=== PATIENT | male | born 1985 | race Caucasian/White ===

== ENCOUNTER 2025-10-04 13:21 | Inpatient (IN) | payer MEDICARE, MEDICAID ==
[~2025-10-04] VITALS: Ht 190.5 cm; Wt 99.3 kg
[2025-10-04] MEDS: SODIUM CHLORIDE 0.9% (SEPSIS BOLUS) IV ONE (13:25)
[2025-10-04 13:28] VITALS: O2SAT 100
[2025-10-04] MEDS: PIPERACILLIN/TAZO 3.375G/50ML 50 ML IV ONE (13:35)
[2025-10-04 14:36] LABS: HEMATOCRIT. 26.9 % (42.0-52.0); HEMOGLOBIN. 8.8 g/dL (14.0-18.0); MEAN PLATELET VOLUME 7.5 fl (7.4-10.4); PLATELET 181 x1000/uL (130-400); RED BLOOD CELL COUNT 3.14 mill/uL (4.7-6.1); RED CELL DISTRIBUTION WIDTH 23.5 % (11.6-14.6)
[2025-10-04] MEDS: VANCOMYCIN 1G PREMIX 200 ML IV ONE (14:49)
[2025-10-04 14:55] LABS: INR 1.1
[2025-10-04 14:56] LABS: TROPONIN I HIGH SENSITIVITY 4 ng/L (3.0-53)
[2025-10-04 15:19] LABS: CREATININE 1.1 mg/dL (0.6-1.3); UREA NITROGEN BLOOD 22 mg/dL (9-23)
[2025-10-04 15:21] LABS: ASPARTATE AMINOTRANSFERASE 30 IU/L (<34); BILIRUBIN DIRECT 0.2 mg/dL (<=3.0); BILIRUBIN TOTAL 0.4 mg/dL (0.1-1.0); PROTEIN TOTAL 7.9 g/dL (6.0-8.3)
[2025-10-04 15:42] LABS: *AMPHETAMINES SCREEN URINE NEGATIVE (NEGATIVE); *BARBITURATES SCREEN URINE NEGATIVE (NEGATIVE); *BENZODIAZEPINES SCREEN URINE NEGATIVE (NEGATIVE); *COCAINE SCREEN URINE NEGATIVE (NEGATIVE); CANNABINOID URINE SCREEN NEGATIVE (NEGATIVE); CLARITY URINE TURBID (CLEAR); COLOR URINE ORANGE (YELLOW); ECSTASY MDMA SCREEN URINE NEGATIVE (NEGATIVE); METHADONE URINE SCREEN NEGATIVE (NEGATIVE); OPIATES URINE SCREEN NEGATIVE (NEGATIVE); PHENCYCLIDINE URINE SCREEN NEGATIVE (NEGATIVE)
[2025-10-04 15:43] LABS: GLUCOSE URINE NEGATIVE (NEGATIVE); KETONES URINE NEGATIVE (NEGATIVE); NITRITE URINE POSITIVE (NEGATIVE); OCCULT BLOOD URINE 3+ (NEGATIVE); PH URINE 6.0 (4.5-8.0); PROTEIN URINE 2+ (NEGATIVE); SPECIFIC GRAVITY URINE 1.017 (1.005-1.030); UROBILINOGEN URINE 1.0 E.U./dL (0.2-1.0)
[2025-10-04 15:44] LABS: LEUKOCYTE ESTERASE URINE 3+ (NEGATIVE)
[2025-10-04 15:46] LABS: BACTERIA URINE 4+; RBC URINE 15-25 /hpf (0-2); SQUAMOUS EPITHELIAL CELL URINE RARE /lpf (RARE/1+); WBC URINE 25-50 /hpf (0-2)
[2025-10-04] MEDS ORDERED: MAGNESIUM 1 G PREMIX 100 ML IV ONE (16:15)
[2025-10-04 16:19] LABS: LYMPHOCYTES % MANUAL 6.0 % (20.0-50.0); MONOCYTES % MANUAL 6.0 % (2.0-8.0); NEUTROPHILS % MANUAL 88.0 % (45.0-75.0); PLATELET ESTIMATE NORMAL
[2025-10-04 17:08] LABS: INFLUENZA TYPE A Indeterminate (Pres. Neg.); INFLUENZA TYPE B Presumptive Negative (Pres. Neg.)
[2025-10-04 17:09] LABS: RESPIRATORY SYNCYTIAL VIRUS Not Detected (Not Detectd)
[2025-10-04] MEDS ORDERED: GUAIFENESIN 200MG/10ML SUGAR FREE UDC PO PRN (18:15)
[2025-10-04] MEDS ORDERED: MAGNESIUM/ALUMINUM HYDROXIDE/SIMETHICONE 30ML UDC PO PRN (18:15)
[2025-10-04] MEDS ORDERED: DOCUSATE SODIUM 100MG CAPSULE PO PRN (18:15)
[2025-10-04] MEDS ORDERED: CLONIDINE 0.1MG TABLET PO PRN (18:15)
[2025-10-04] MEDS ORDERED: IPRATROPIUM/ALBUTEROL 0.5-3(2.5)MG/3ML NEB HHN PRN (18:15)
[2025-10-04] MEDS: SODIUM CHLORIDE 0.9% 1,000 ML IV SCH (18:32)
[2025-10-04] MEDS ORDERED: DEXTROSE 50% WATER 50ML SYRINGE IV PRN (19:00)
[2025-10-04 19:58] LABS: *AMPHETAMINES SCREEN URINE NEGATIVE (NEGATIVE); *BARBITURATES SCREEN URINE NEGATIVE (NEGATIVE); *BENZODIAZEPINES SCREEN URINE NEGATIVE (NEGATIVE); *COCAINE SCREEN URINE NEGATIVE (NEGATIVE); CLARITY URINE CLEAR (CLEAR); COLOR URINE YELLOW (YELLOW); GLUCOSE URINE NEGATIVE (NEGATIVE); KETONES URINE NEGATIVE (NEGATIVE); OCCULT BLOOD URINE 3+ (NEGATIVE); PH URINE 7.0 (4.5-8.0); PROTEIN URINE TRACE (NEGATIVE); SPECIFIC GRAVITY URINE 1.020 (1.005-1.030)
[2025-10-04 19:59] LABS: CANNABINOID URINE SCREEN NEGATIVE (NEGATIVE); ECSTASY MDMA SCREEN URINE NEGATIVE (NEGATIVE); LEUKOCYTE ESTERASE URINE 3+ (NEGATIVE); METHADONE URINE SCREEN NEGATIVE (NEGATIVE); NITRITE URINE NEGATIVE (NEGATIVE); OPIATES URINE SCREEN NEGATIVE (NEGATIVE); PHENCYCLIDINE URINE SCREEN NEGATIVE (NEGATIVE); UROBILINOGEN URINE 0.2 E.U./dL (0.2-1.0)
[2025-10-04 20:07] LABS: BACTERIA URINE 2+; SQUAMOUS EPITHELIAL CELL URINE RARE /lpf (RARE/1+); WBC URINE 15-25 /hpf (0-2)
[2025-10-04] MEDS: MAGNESIUM 1 G PREMIX 100 ML IV SCH (20:31)
[2025-10-04] MEDS: BLOOD SUGAR DIAGNOSTIC STRIP TEST SCH (23:09)
[2025-10-04] MEDS: ENOXAPARIN 40MG/0.4ML SYR SUBCUT SCH (23:09)
[2025-10-04] MEDS: PIPERACILLIN/TAZO 3.375G/50ML 50 ML IV SCH (23:09)
[2025-10-04] MEDS: PANTOPRAZOLE SODIUM 40 MG/VIAL IV SCH (23:25)
[2025-10-04] MEDS: VANCOMYCIN 1.25GM/250ML IV SCH (23:25)
[2025-10-04 23:44] VITALS: BP 121/78; PULSE 98; RESP 19; TEMP 36.2512
[2025-10-05] VITALS (11 sets, daily range): BP systolic 74–148; BP diastolic 37–83; PULSE 74–149; RESP 19–28; TEMP 36.6–40.1; O2SAT 96–100
[2025-10-05 01:46] LABS: TROPONIN I HIGH SENSITIVITY < 4 ng/L (3.0-53)
[2025-10-05 03:41] LABS: FOLIC ACID (FOLATE) SERUM 2.97 ng/mL (>5.38); VITAMIN B12 SERUM 491 pg/mL (211-911)
[2025-10-05 06:38] LABS: BASOPHILS % 0.0 % (0.0-2.0); EOSINOPHILS % 0.0 % (0.0-5.0); HEMATOCRIT. 25.0 % (42.0-52.0); HEMOGLOBIN. 8.2 g/dL (14.0-18.0); LYMPHOCYTES % 11.9 % (20.0-50.0); MEAN PLATELET VOLUME 7.5 fl (7.4-10.4); MONOCYTES % 13.9 % (2.0-8.0); NEUTROPHILS % 74.2 % (40.0-76.0); PLATELET 155 x1000/uL (130-400); RED BLOOD CELL COUNT 2.90 mill/uL (4.7-6.1); RED CELL DISTRIBUTION WIDTH 23.2 % (11.6-14.6)
[2025-10-05 06:57] LABS: CREATININE 1.0 mg/dL (0.6-1.3); TRIGLYCERIDE 158 mg/dL (0-150); UREA NITROGEN BLOOD 15 mg/dL (9-23)
[2025-10-05 06:58] LABS: ASPARTATE AMINOTRANSFERASE 26 IU/L (<34); BILIRUBIN DIRECT 0.2 mg/dL (<=3.0); BILIRUBIN TOTAL 0.5 mg/dL (0.1-1.0); LDL CHOLESTEROL 53 mg/dL (5-100); PROTEIN TOTAL 7.5 g/dL (6.0-8.3); T4 FREE 1.53 ng/dL (0.89-1.76)
[2025-10-05 07:31] LABS: HEPATITIS C AB NON REACTIVE (Neg) (Negative)
[2025-10-05] MEDS: ONDANSETRON HCL 4MG/2ML INJ IV PRN (08:40)
[2025-10-05] MEDS: ACETAMINOPHEN 325MG TABLET PO PRN (08:41)
[2025-10-05 10:07] LABS: TROPONIN I HIGH SENSITIVITY < 4 ng/L (3.0-53)
[2025-10-05] MEDS: ACETAMINOPHEN 1000MG/100ML 100 ML IV NR (10:45)
[2025-10-05] MEDS: SODIUM CHLORIDE 0.9% 1,000 ML IV ONE (12:26)
[2025-10-05] MEDS: MIDODRINE HCL 5MG TABLET PO SCH ×2 (12:27→16:23)
[2025-10-05] MEDS: SODIUM CHLORIDE 0.9% 1,000 ML IV SCH ×2 (12:40→12:42)
[2025-10-05] MEDS ORDERED: DEXTROSE 50% WATER 50ML SYRINGE IV PRN (16:30)
[2025-10-05] MEDS ORDERED: NOREPINEPHRINE 8MG/250ML PMX 250 ML IV PRN (16:30)
[2025-10-05] MEDS ORDERED: ACETAMINOPHEN 1000MG/100ML 100 ML IV PRN (18:15)
[2025-10-05] MEDS: BLOOD SUGAR DIAGNOSTIC STRIP TEST SCH (18:34)
[2025-10-05] MEDS: INSULIN LISPRO 100 UNITS/ML SUBCUT SCH (18:47)
[2025-10-05] MEDS: VANCOMYCIN 1.25GM/250ML IV SCH (19:07)
[2025-10-06] VITALS (12 sets, daily range): BP systolic 99–122; BP diastolic 64–80; PULSE 77–106; RESP 14–32; TEMP 36.7–37.5; O2SAT 98–100
[2025-10-06 04:30] LABS: CLARITY URINE TURBID (CLEAR); COLOR URINE BLOODY (YELLOW); GLUCOSE URINE TRACE (NEGATIVE); KETONES URINE NEGATIVE (NEGATIVE); OCCULT BLOOD URINE 3+ (NEGATIVE); PH URINE 7.0 (4.5-8.0); PROTEIN URINE 2+ (NEGATIVE); SPECIFIC GRAVITY URINE 1.017 (1.005-1.030)
[2025-10-06 04:31] LABS: LEUKOCYTE ESTERASE URINE 3+ (NEGATIVE); NITRITE URINE POSITIVE (NEGATIVE); UROBILINOGEN URINE 1.0 E.U./dL (0.2-1.0)
[2025-10-06 07:24] LABS: CREATININE 0.8 mg/dL (0.6-1.3); UREA NITROGEN BLOOD 15 mg/dL (9-23)
[2025-10-06 07:27] LABS: PHOSPHORUS 2.2 mg/dL (2.5-4.9)
[2025-10-06 07:27] LABS: HEMATOCRIT. 21.9 % (42.0-52.0); HEMOGLOBIN. 7.2 g/dL (14.0-18.0); MEAN PLATELET VOLUME 7.8 fl (7.4-10.4); PLATELET 110 x1000/uL (130-400); RED BLOOD CELL COUNT 2.55 mill/uL (4.7-6.1); RED CELL DISTRIBUTION WIDTH 23.3 % (11.6-14.6)
[2025-10-06 07:34] LABS: CREATININE 0.9 mg/dL (0.6-1.3); UREA NITROGEN BLOOD 15 mg/dL (9-23)
[2025-10-06 07:55] LABS: BACTERIA URINE 4+
[2025-10-06 17:21] LABS: BAND% 3.0 % (1.0-6.0); LYMPHOCYTES % MANUAL 8.0 % (20.0-50.0); MONOCYTES % MANUAL 9.0 % (2.0-8.0); NEUTROPHILS % MANUAL 80.0 % (45.0-75.0); PLATELET ESTIMATE DECREASED
[2025-10-07] VITALS (13 sets, daily range): BP systolic 102–126; BP diastolic 64–86; PULSE 72–111; RESP 9–27; TEMP 36.2–37.4; O2SAT 95–100
[2025-10-07 07:29] LABS: PLATELET 144 x1000/uL (130-400); RED BLOOD CELL COUNT 2.58 mill/uL (4.7-6.1); RED CELL DISTRIBUTION WIDTH 23.1 % (11.6-14.6)
[2025-10-07 07:51] LABS: CREATININE 0.8 mg/dL (0.6-1.3)
[2025-10-07 07:52] LABS: UREA NITROGEN BLOOD 17 mg/dL (9-23)
[2025-10-08] VITALS (15 sets, daily range): BP systolic 90–118; BP diastolic 63–85; PULSE 62–90; RESP 9–31; TEMP 36.55848–37; O2SAT 95–100
[2025-10-08] MEDS: CEFTRIAXONE 2GM/50ML 50 ML IV SCH (05:59)
[2025-10-08 07:17] LABS: BASOPHILS % 0.0 % (0.0-2.0); EOSINOPHILS % 0.9 % (0.0-5.0); HEMATOCRIT. 25.7 % (42.0-52.0); HEMOGLOBIN. 8.8 g/dL (14.0-18.0); LYMPHOCYTES % 14.8 % (20.0-50.0); MEAN PLATELET VOLUME 7.9 fl (7.4-10.4); MONOCYTES % 13.1 % (2.0-8.0); NEUTROPHILS % 71.2 % (40.0-76.0); PLATELET 167 x1000/uL (130-400); RED BLOOD CELL COUNT 3.03 mill/uL (4.7-6.1); RED CELL DISTRIBUTION WIDTH 22.0 % (11.6-14.6)
[2025-10-08 09:07] LABS: INR 1.0
[2025-10-08] MEDS ORDERED: BUPIVACAINE HCL/PF 0.5% (5MG/ML) 10ML ONE (15:02)
[2025-10-08] MEDS ORDERED: LIDOCAINE HCL 1% 20ML VIAL ONE ×2 (15:02→19:53)
[2025-10-08 17:27] LABS: UREA NITROGEN BLOOD 14 mg/dL (9-23)
[2025-10-08 17:28] LABS: CREATININE 0.9 mg/dL (0.6-1.3)
[2025-10-08] MEDS ORDERED: ACETAMINOPHEN 1000MG/100ML 100 ML IV ONE (19:11)
[2025-10-08] MEDS ORDERED: ROCURONIUM BROMIDE 10MG/ML VIAL 5ML IV ONE ×2 (19:15→19:28)
[2025-10-08] MEDS ORDERED: PROPOFOL 200MG/20ML VIAL IV ONE (19:15)
[2025-10-08] MEDS ORDERED: MIDAZOLAM HCL 2 MG/2 ML VIAL ONE (19:15)
[2025-10-08] MEDS ORDERED: FENTANYL CITRATE/PF 50MCG/ML 5ML VIAL ONE (19:15)
[2025-10-08] MEDS ORDERED: FAMOTIDINE 20MG/2ML VIAL IV ONE (19:31)
[2025-10-08] MEDS ORDERED: PHENYLEPHRINE HCL 10MG/ML 1ML IV ONE (19:36)
[2025-10-08] MEDS ORDERED: METOCLOPRAMIDE HCL 10MG/2ML VIAL ONE (19:59)
[2025-10-08] MEDS ORDERED: ONDANSETRON HCL 4MG/2ML INJ ONE (19:59)
[2025-10-08] MEDS ORDERED: SKIN ADHESIVE 0.7 GM EA TOP ONE (20:42)
[2025-10-08] MEDS ORDERED: HYDRALAZINE 20MG/ML VIAL IV PRN (21:15)
[2025-10-08] MEDS ORDERED: NALOXONE HCL 0.4MG/ML VIAL IV PRN (21:15)
[2025-10-08] MEDS ORDERED: ONDANSETRON HCL 4MG/2ML INJ IV PRN (21:15)
[2025-10-08] MEDS: HYDROMORPHONE HCL/PF 1MG/ML INJ IV PRN (21:22)
[2025-10-09] VITALS (8 sets, daily range): BP systolic 110–119; BP diastolic 66–97; PULSE 60–91; RESP 17–31; TEMP 36.1–36.7; O2SAT 99–100
[2025-10-09] MEDS: IOHEXOL-350 100 ML BOTTLE ONE (07:49)
[2025-10-09] MEDS: HYDROMORPHONE HCL/PF 2MG/ML INJ IV PRN (10:09)
[2025-10-10] VITALS (9 sets, daily range): BP systolic 111–122; BP diastolic 77–90; PULSE 90–118; RESP 15–34; TEMP 36.2–36.7; O2SAT 97–99
[2025-10-10] MEDS ORDERED: NALOXONE HCL 0.4MG/ML VIAL IV PRN (13:30)
[2025-10-10] MEDS: HYDROMORPHONE HCL/PF 2MG/ML INJ IV PRN (16:48)
[2025-10-11 04:00] VITALS: BP 114/81; PULSE 107; RESP 13; TEMP 36.4; O2SAT 98
[2025-10-11 08:00] VITALS: BP 120/88; PULSE 111; RESP 21; TEMP 36.1; O2SAT 98
[2025-10-11 12:00] VITALS: BP 119/80; PULSE 105; RESP 17; TEMP 36.1; O2SAT 98
[2025-10-11 16:00] VITALS: BP 126/87; PULSE 101; RESP 17; TEMP 36.9; O2SAT 98
[2025-10-11] MEDS: METOCLOPRAMIDE HCL 10MG/2ML VIAL IV SCH (19:41)
[2025-10-11 20:00] VITALS: BP 121/88; PULSE 119; RESP 18; TEMP 36.2; O2SAT 97
[2025-10-12] VITALS: BP 112/84; PULSE 107; RESP 19; TEMP 35.8; O2SAT 97
[2025-10-12 04:00] VITALS: BP 115/86; PULSE 113; RESP 17; TEMP 35.8; O2SAT 98
[2025-10-12 08:00] VITALS: BP 119/84; PULSE 116; RESP 15; TEMP 36.3; O2SAT 97
[2025-10-12 12:00] VITALS: BP 113/73; PULSE 106; RESP 16; TEMP 36.2; O2SAT 99
[2025-10-12 16:00] VITALS: BP 109/77; PULSE 109; RESP 16; TEMP 36.2; O2SAT 99
[2025-10-12 20:00] VITALS: BP 111/73; PULSE 108; RESP 18; TEMP 36.3; O2SAT 99
[2025-10-13] VITALS (10 sets, daily range): BP systolic 100–113; BP diastolic 66–84; PULSE 85–108; RESP 12–20; TEMP 36.1–36.4; O2SAT 95–100
[2025-10-13 06:49] LABS: CREATININE 1.1 mg/dL (0.6-1.3)
[2025-10-13 06:50] LABS: UREA NITROGEN BLOOD 18 mg/dL (9-23)
[2025-10-13 07:14] LABS: BASOPHILS % 0.5 % (0.0-2.0); EOSINOPHILS % 2.2 % (0.0-5.0); HEMATOCRIT. 30.5 % (42.0-52.0); HEMOGLOBIN. 10.0 g/dL (14.0-18.0); LYMPHOCYTES % 17.3 % (20.0-50.0); MEAN PLATELET VOLUME 7.2 fl (7.4-10.4); MONOCYTES % 10.8 % (2.0-8.0); NEUTROPHILS % 69.2 % (40.0-76.0); PLATELET 240 x1000/uL (130-400); RED BLOOD CELL COUNT 3.53 mill/uL (4.7-6.1); RED CELL DISTRIBUTION WIDTH 21.8 % (11.6-14.6)
[2025-10-14] VITALS (8 sets, daily range): BP systolic 96–109; BP diastolic 61–76; PULSE 66–91; RESP 16–20; TEMP 36.2–37.6; O2SAT 97–99
[2025-10-14 06:06] LABS: BASOPHILS % 0.3 % (0.0-2.0); EOSINOPHILS % 2.0 % (0.0-5.0); HEMATOCRIT. 30.3 % (42.0-52.0); HEMOGLOBIN. 9.9 g/dL (14.0-18.0); LYMPHOCYTES % 17.9 % (20.0-50.0); MEAN PLATELET VOLUME 7.0 fl (7.4-10.4); MONOCYTES % 12.1 % (2.0-8.0); NEUTROPHILS % 67.7 % (40.0-76.0); PLATELET 231 x1000/uL (130-400); RED BLOOD CELL COUNT 3.53 mill/uL (4.7-6.1); RED CELL DISTRIBUTION WIDTH 21.7 % (11.6-14.6)
[2025-10-14 06:13] LABS: CREATININE 1.1 mg/dL (0.6-1.3)
[2025-10-14 06:14] LABS: UREA NITROGEN BLOOD 18 mg/dL (9-23)
[2025-10-14] MEDS: DEXT 5%/LACTATED RINGERS 1,000 ML IV ONE (11:34)
[2025-10-14] MEDS: HYDROMORPHONE HCL/PF 2MG/ML INJ IV PRN (11:38)
[2025-10-15] VITALS: BP 110/66; PULSE 84; RESP 20; TEMP 36.4; O2SAT 100
[2025-10-15 04:00] VITALS: BP 112/70; PULSE 89; RESP 20; TEMP 36.9; O2SAT 100
[2025-10-15] MEDS: TRAMADOL 50MG TABLET PO PRN (05:03)
[2025-10-15 06:50] LABS: BASOPHILS % 0.2 % (0.0-2.0); EOSINOPHILS % 1.1 % (0.0-5.0); HEMATOCRIT. 27.7 % (42.0-52.0); HEMOGLOBIN. 9.2 g/dL (14.0-18.0); LYMPHOCYTES % 18.5 % (20.0-50.0); MEAN PLATELET VOLUME 7.1 fl (7.4-10.4); MONOCYTES % 13.0 % (2.0-8.0); NEUTROPHILS % 67.2 % (40.0-76.0); PLATELET 200 x1000/uL (130-400); RED BLOOD CELL COUNT 3.22 mill/uL (4.7-6.1); RED CELL DISTRIBUTION WIDTH 21.4 % (11.6-14.6)
[2025-10-15 07:29] LABS: CREATININE 1.1 mg/dL (0.6-1.3); UREA NITROGEN BLOOD 15 mg/dL (9-23)
[2025-10-15 08:00] VITALS: BP 99/56; PULSE 86; RESP 18; TEMP 36; O2SAT 99
[2025-10-15 12:00] VITALS: BP 98/60; PULSE 85; RESP 18; TEMP 36.1; O2SAT 98
[2025-10-15 16:00] VITALS: BP 95/61; PULSE 79; RESP 18; TEMP 36.7; O2SAT 100
[2025-10-15 20:00] VITALS: BP 122/78; PULSE 85; RESP 19; TEMP 36.1; O2SAT 98
[2025-10-16] VITALS: BP 113/64; PULSE 81; RESP 21; TEMP 36.4; O2SAT 98
[2025-10-16 04:00] VITALS: BP 110/64; PULSE 76; RESP 20; TEMP 36.4; O2SAT 98
[2025-10-16 08:00] VITALS: BP 123/70; PULSE 80; RESP 18; TEMP 36.8; O2SAT 97
[2025-10-16 12:00] VITALS: BP 107/61; PULSE 76; RESP 17; TEMP 36.6; O2SAT 98
[2025-10-16 16:00] VITALS: BP 103/63; PULSE 69; RESP 18; TEMP 36.4; O2SAT 99
[2025-10-16] MEDS: ACETAMINOPHEN 325MG TABLET PO PRN (19:01)
[2025-10-16 20:00] VITALS: BP 107/62; PULSE 74; RESP 19; TEMP 36.3; O2SAT 100
[2025-10-17] VITALS: BP 99/62; PULSE 85; RESP 19; TEMP 36.3; O2SAT 100
[2025-10-17 04:00] VITALS: BP 110/52; PULSE 85; RESP 19; TEMP 36.7; O2SAT 100
[2025-10-17 06:23] LABS: HEMATOCRIT. 28.1 % (42.0-52.0); HEMOGLOBIN. 9.1 g/dL (14.0-18.0); MEAN PLATELET VOLUME 7.6 fl (7.4-10.4); PLATELET 167 x1000/uL (130-400); RED BLOOD CELL COUNT 3.26 mill/uL (4.7-6.1); RED CELL DISTRIBUTION WIDTH 21.5 % (11.6-14.6)
[2025-10-17 06:40] LABS: CREATININE 0.9 mg/dL (0.6-1.3); UREA NITROGEN BLOOD 13 mg/dL (9-23)
[2025-10-17 08:00] VITALS: BP 97/56; PULSE 90; RESP 18; TEMP 36.3; O2SAT 95
[2025-10-17 12:00] VITALS: BP 111/57; PULSE 75; RESP 18; TEMP 36.5; O2SAT 98
[2025-10-17 16:00] VITALS: BP 109/63; PULSE 88; RESP 18; TEMP 36.4; O2SAT 98
[2025-10-17 20:00] VITALS: BP 107/69; PULSE 85; RESP 18; TEMP 36.7; O2SAT 100
[2025-10-17 20:48] LABS: EOSINOPHILS % MANUAL 3.0 % (0.0-5.0); LYMPHOCYTES % MANUAL 19.0 % (20.0-50.0); MONOCYTES % MANUAL 7.0 % (2.0-8.0); NEUTROPHILS % MANUAL 71.0 % (45.0-75.0); PLATELET ESTIMATE NORMAL
[2025-10-18] VITALS: BP 110/70; PULSE 100; RESP 19; TEMP 36.8; O2SAT 100
[2025-10-18 04:00] VITALS: BP 110/70; PULSE 100; RESP 19; TEMP 36.8; O2SAT 100
[2025-10-18 08:00] VITALS: BP 98/53; PULSE 87; RESP 20; TEMP 36.4; O2SAT 97
[2025-10-18 12:00] VITALS: BP 90/59; PULSE 84; RESP 19; TEMP 36.1; O2SAT 97
[2025-10-18 16:00] VITALS: BP 107/75; PULSE 75; RESP 20; TEMP 36.2; O2SAT 98
[2025-10-18 20:00] VITALS: BP 96/57; PULSE 91; RESP 20; TEMP 36.4; O2SAT 100
[2025-10-19] VITALS (7 sets, daily range): BP systolic 102–108; BP diastolic 63–70; PULSE 67–102; RESP 17–20; TEMP 36.1–37.3; O2SAT 97–100
[2025-10-20] VITALS: BP 110/64; PULSE 78; RESP 16; TEMP 36.2; O2SAT 99
[2025-10-20 04:00] VITALS: BP 101/62; PULSE 99; RESP 19; TEMP 36.3; O2SAT 100
[2025-10-20 08:00] VITALS: BP 109/66; PULSE 86; RESP 20; TEMP 36.2; O2SAT 100
[2025-10-20 12:00] VITALS: BP 95/55; PULSE 75; RESP 20; TEMP 36.5; O2SAT 100
[2025-10-20 16:00] VITALS: BP 98/59; PULSE 71; RESP 18; TEMP 35.6; O2SAT 97
== END 2025-10-20 19:45 | disposition home health service (06) | DRG 853 ==
LOC: ER 14:12 → 7WST 16:56 → EDBEDREQTM 16:57 → EDBEDREQ 16:57 → ENRESERV 21:40 → 5EST 10-05 17:38 → 6WST 10-14 05:18 → 6EST 10-16 00:32
PROVIDERS: ADMIT Hospitalist; ATTEND Hospitalist
PROC: 0D1L4Z4 Bypass Transverse Colon to Cutaneous, Percutaneous Endoscopic Approach (ICD-10-PCS; principal; 2025-10-08)
PROC: 30233N1 Transfusion of Nonautologous Red Blood Cells into Peripheral Vein, Percutaneous Approach (ICD-10-PCS; 2025-10-08)
DX: A41.51 Sepsis due to Escherichia coli [E. coli] (principal); R65.21 Severe sepsis with septic shock; C78.00 Secondary malignant neoplasm of unspecified lung; E87.20 Acidosis, unspecified; C78.7 Secondary malignant neoplasm of liver and intrahepatic bile duct; N32.1 Vesicointestinal fistula; C18.7 Malignant neoplasm of sigmoid colon; N13.6 Pyonephrosis; I10 Essential (primary) hypertension; E11.42 Type 2 diabetes mellitus with diabetic polyneuropathy; D64.9 Anemia, unspecified; Z20.822 Contact with and (suspected) exposure to COVID-19; T45.1X5A Adverse effect of antineoplastic and immunosuppressive drugs, initial encounter; K59.00 Constipation, unspecified; R29.6 Repeated falls; Z79.4 Long term (current) use of insulin; Z79.899 Other long term (current) drug therapy; Y92.89 Other specified places as the place of occurrence of the external cause
CPT/HCPCS: 36415; 71045; 71275; 74174; 80048; 80061; 80076; 80202; 80305; 80320; 81003; 82040; 82607; 82746; 82962; 83036; 83540; 83550; 83605; 83735; 83880; 84100; 84145; 84439; 84443; 84484; 85025; 85027; 85044; 85379; 86705; 86850; 86900; 86920; 87077; 87186; 87340; 87420; 87426; 87804; 93005; 93970; 97116; 97162; 97166; 97530; 99291; A4606; J0665; J0696; J1171; J1308; J1650; J1815; J2003; J2250; J2371; J2405; J2470; J2543; J2704; J2765; J3010; J3373; J3475; J3490; J7030; J7120; P9016; Q9967; G0480; J0131